=== PATIENT | male | born 1960 | race Caucasian/White ===

== ENCOUNTER 2017-12-19 12:57 | Emergency (ER) | payer MEDICAID ==
[~2017-12-19] VITALS: Ht 188 cm; Wt 81.7 kg
[~2017-12-19 12:57] MED LIST: DILAUDID 2 MG TA2 MG PO; DOLOPHINE HCL10 MG PO; NORCO 5-325 TA1 EACH PO; OXYCONTIN10 M1 PO; PROZAC10 MG PO; TRAZODONE HCL100 MG PO; VALIUM5 MG PO
[2017-12-19] MEDS ORDERED: ZOLOFT50 MG PO (13:15)
[2017-12-19] MEDS ORDERED: DILAUDID8 MG PO (13:15)
[2017-12-19] MEDS ORDERED: CARBAMAZEPINE100 M2 PO (13:16)
[2017-12-19] MEDS ORDERED: DOXYCYCLINE 10100 MG PO (13:17)
[2017-12-19 14:27] LABS: AMP/METHAMP Negative (Negative); BARBITURATES Negative (Negative); BENZODIAZEPINES POSITIVE (Negative); COCAINE Negative (Negative); METHADONE Negative (Negative); OPIATES POSITIVE (Negative); PCP Negative (Negative); THC Negative (Negative)
[2017-12-19] MEDS ORDERED: IBUPROFEN 600600 M1 PO (15:39)
[2017-12-19 15:48] VITALS: BP 137/92
== END 2017-12-19 15:49 | disposition home or self-care (01) ==
LOC: M.ERS 12:57
PROVIDERS: Physician Assistant
DX: S22.32XA Fracture of one rib, left side, initial encounter for closed fracture (principal); S09.8XXA Other specified injuries of head, initial encounter; G89.29 Other chronic pain; G25.81 Restless legs syndrome; F17.210 Nicotine dependence, cigarettes, uncomplicated; Z88.6 Allergy status to analgesic agent; W18.39XA Other fall on same level, initial encounter; Y93.89 Activity, other specified; Y92.89 Other specified places as the place of occurrence of the external cause; Y99.8 Other external cause status